=== PATIENT | female | born 1985 | race American Indian/Alaskan Native ===

== ENCOUNTER 2019-01-31 10:32 | Emergency (ER) | payer OTHER ==
--- NOTE | 2019-01-31 11:13 | Emergency Department Report ---
Chief Complaint: Upper Respiratory Infection Stated Complaint: HEADACHE/SORE THROAT/ITCHY EYES Time Seen by Provider: 01/31/19 11:11 - HPI History of Present Illness: co itchy eyes, scratchy voice, headache, ears itching denies fever denies cig/etoh rx none pmh bronchitis psh csec lmp 2 w nkda MSE screening note: Focused history and physical exam performed. Due to findings the following was ordered: ED Disposition for MSE Condition: Stable
[2019-01-31] MEDS ORDERED: SOLU-Medrol IM ONE (13:17)
--- NOTE | 2019-01-31 13:57 | Emergency Department Report ---
ED General Adult HPI - General Chief complaint: Upper Respiratory Infection Stated complaint: HEADACHE/SORE THROAT/ITCHY EYES Time Seen by Provider: 01/31/19 11:11 Source: patient Mode of arrival: Ambulatory Limitations: No Limitations - History of Present Illness Initial comments: 33 [id number] female with no significant past medical history persistent hospital complaining of facial swelling, pruritic rash, sore throat, and hoarseness 1 week. Patient also complaining if itching to her eyes. Symptoms started after going to the movie theater. Her friend who also tender to same movie has URI symptoms. Patient developed a dry cough today and headache. No complaints of fever but felt hot last night. Patient took Avril for allergies without improvement. No wheezing reported. Severity scale (0 -10): 8 - Related Data Previous Rx's Medication Instructions Recorded Last Taken Type Mometasone Furoate [Elocon] 45 gm TP BID #1 cream..g. 09/30/18 Unknown Rx Nitrofurantoin Monohyd/M-Cryst 100 mg PO BID #14 capsule 09/30/18 Unknown Rx [Macrobid 100 mg Capsule] Cetirizine HCl/Pseudoephedrine 1 each PO BID #20 tab.er.12h 01/31/19 Unknown Rx [Zyrtec-D Tablet] Prednisone [predniSONE 10 mg 10 mg PO .TAPER #1 tab.ds.pk 01/31/19 Unknown Rx (6-Day Pack, 21 Tabs)] Allergies Allergy/AdvReac Type Severity Reaction Status Date / Time No Known Allergies Allergy Unverified 09/30/18 10:16 ED Review of Systems ROS: Stated complaint: HEADACHE/SORE THROAT/ITCHY EYES Other details as noted in HPI Comment: All other systems reviewed and negative ED Past Medical Hx - Past Medical History Previous Medical History?: No - Surgical History Past Surgical History?: Yes Additional Surgical History: C section - Social History Smoking Status: Never Smoker Substance Use Type: None - Medications Home Medications: Home Medications Medication Instructions Recorded Confirmed Last Taken Type Mometasone Furoate [Elocon] 45 gm TP BID #1 cream..g. 09/30/18 Unknown Rx Nitrofurantoin Monohyd/M-Cryst 100 mg PO BID #14 capsule 09/30/18 Unknown Rx [Macrobid 100 mg Capsule] Cetirizine HCl/Pseudoephedrine 1 each PO BID #20 tab.er.12h 01/31/19 Unknown Rx [Zyrtec-D Tablet] Prednisone [predniSONE 10 mg 10 mg PO .TAPER #1 tab.ds.pk 01/31/19 Unknown Rx (6-Day Pack, 21 Tabs)] ED Physical Exam - General Limitations: No Limitations - Other Other exam information: General: No limitations, patient is alert in no acute distress Head exam: Atraumatic, normocephalic Eyes exam: Normal appearance, pupils equal reactive to light, extraocular movements intact no erythema or drainage ENT: Moist mucous membrane, normal oropharynx without erythema, exudate. Course without stridor Neck exam: Normal inspection, full range of motion, no meningismus nontender no lymphadenopathy Respiratory exam: Clear to auscultation bilateral, no wheezes, rales, crackles Cardiovascular: Normal rate and rhythm, normal heart sounds Abdomen: Soft, nondistended, and nontender, with normal bowel sounds, no rebound, or guarding Extremity: Full range of motion normal inspection no deformity Back: Normal Inspection, full range of motion, no tenderness Neurologic: Alert, oriented x3, cranial nerves intact, no motor or sensory deficit Psychiatric: normal affect, normal mood Skin: Papular pruritic rash to face without erythema. No generalized rash ED Course Vital Signs 01/31/19 01/31/19 11:12 11:20 Temperature 98.8 F 98.8 F Pulse Rate 20 L 84 Respiratory 20 20 Rate Blood Pressure 140/60 Blood Pressure 140/60 [Left] O2 Sat by Pulse 99 99 Oximetry ED Medical Decision Making - Medical Decision Making Patient describing symptoms suggestive of an allergy to unknown exposure. Will be treated with antihistamine and steroids. Follow-up encouraged. - Differential Diagnosis allergic reaction, URI, sinusitis, pharyngitis, laryngitis Critical Care Time: No Critical care attestation.: If time is entered above; I have spent that time in minutes in the direct care of this critically ill patient, excluding procedure time. ED Disposition Clinical Impression: Allergic symptoms Disposition: DC-01 TO HOME OR SELFCARE Is pt being admited?: No Does the pt Need Aspirin: No Condition: Stable Instructions: Allergies (ED) Additional Instructions: Take the medication as prescribed. Follow up with your doctor or the clinic/doctor provided. Return if symptoms worsen as indicated by your d ischarge instructions Prescriptions: Prednisone [predniSONE 10 mg (6-Day Pack, 21 Tabs)] 10 mg PO .TAPER #1 tab.ds.pk Cetirizine HCl/Pseudoephedrine [Zyrtec-D Tablet] 1 each PO BID #20 tab.er.12h Referrals: RAMONE DE OLIVEIRA MD [Primary Care Provider] - 3-5 Days [facility] [Provider Group] - 3-5 Days Time of Disposition: 13:59
[2019-01-31 14:10] VITALS: BP 123/74
== END 2019-01-31 14:10 | disposition home or self-care (01) ==
LOC: ED 10:32
DX: T78.40XA Allergy, unspecified, initial encounter (principal); L29.9 Pruritus, unspecified; X58.XXXA Exposure to other specified factors, initial encounter
CPT/HCPCS: 96372; 99282; J2930